=== PATIENT | female | born 1995 | race Caucasian/White ===

== ENCOUNTER 2017-03-07 03:29 | Emergency (ER) | payer MEDICAID ==
[2017-03-07 04:54] VITALS: BP 114/73
== END 2017-03-07 04:54 | disposition home or self-care (01) ==
LOC: ED 03:29
DX: S52.124A Nondisplaced fracture of head of right radius, initial encounter for closed fracture (principal); W19.XXXA Unspecified fall, initial encounter; Y93.89 Activity, other specified; Y92.89 Other specified places as the place of occurrence of the external cause; Y99.8 Other external cause status

== ENCOUNTER 2017-06-28 15:18 | Emergency (ER) | payer MEDICAID ==
[~2017-06-28] VITALS: Ht 165.1 cm; Wt 61.7 kg
[2017-06-28 16:16] VITALS: BP 138/58
== END 2017-06-28 16:16 | disposition home or self-care (01) ==
LOC: ED 15:18
DX: S01.01XD Laceration without foreign body of scalp, subsequent encounter (principal); X58.XXXD Exposure to other specified factors, subsequent encounter; Y92.89 Other specified places as the place of occurrence of the external cause; Y99.8 Other external cause status

== ENCOUNTER 2017-10-23 20:51 | Emergency (ER) | payer MEDICAID ==
[~2017-10-23] VITALS: Ht 160 cm; Wt 59.9 kg
[2017-10-23 21:33] VITALS: BP 124/74
== END 2017-10-23 21:33 | disposition home or self-care (01) ==
LOC: ED 20:51
DX: H60.11 Cellulitis of right external ear (principal); Z91.018 Allergy to other foods

== ENCOUNTER 2018-06-17 17:17 | Emergency (ER) | payer MEDICAID ==
[~2018-06-17] VITALS: Ht 162.6 cm; Wt 54.9 kg
[2018-06-17 17:40] VITALS: Ht 162.6 cm; Wt 54.9 kg
[2018-06-17 18:43] VITALS: BP 115/80
== END 2018-06-17 18:43 | disposition home or self-care (01) ==
LOC: ED 17:17
DX: T20.10XA Burn of first degree of head, face, and neck, unspecified site, initial encounter (principal); T21.11XA Burn of first degree of chest wall, initial encounter; T31.0 Burns involving less than 10% of body surface; X12.XXXA Contact with other hot fluids, initial encounter; Y93.89 Activity, other specified; Y92.89 Other specified places as the place of occurrence of the external cause; Y99.8 Other external cause status
CPT/HCPCS: 90715

== ENCOUNTER 2018-12-30 02:42 | Emergency (ER) | payer MEDICAID ==
[~2018-12-30] VITALS: Ht 162.6 cm; Wt 61.7 kg
[2018-12-30 02:45] VITALS: Ht 162.6 cm; Wt 61.7 kg
[2018-12-30 04:32] VITALS: BP 114/73
== END 2018-12-30 04:32 | disposition home or self-care (01) ==
LOC: ED 02:42
DX: R21 Rash and other nonspecific skin eruption (principal); Z91.018 Allergy to other foods